=== PATIENT | male | born 1955 | race Two or more races ===

== ENCOUNTER 2024-08-24 10:00 | Day surgery (SDC) | payer MEDICARE, MEDICAID, SELFPAY ==
[2024-08-23 13:21] VITALS: BMI 27.8
[2024-08-24] VITALS (9 sets, daily range): BP systolic 110–139; BP diastolic 68–89; PULSE 53–65; RESP 8–17; TEMP 36.6–37.1; O2SAT 95–100; BMI 27.4
[2024-08-24] MEDS: DiphenhydrAMINE INJ 50 MG/ML VIAL 25 MG IV (11:23)
[2024-08-24] MEDS: MIDAZOLAM INJ 1 MG/ML VIAL 2 ML (ASD USE ONLY) 2 MG IV (11:23)
[2024-08-24] MEDS: fentaNYL CIT INJ 50 mCg/ML AMP 2ML (ASD USE ONLY) IV (11:23)
--- NOTE | 2024-08-24 11:41 | SUR.PHASEII ---
PATIENT INTO RECOVERY WITH NO ACUTE DISTRESS NOTED, V/S STABLE, NO COMPLAINTS OF PAIN OR NAUSEA AT THIS TIME, PATIENT REPOSITIONED FOR COMFORT, PATIENT ACTIVELY PASSING FLATUS, REPORT RECEIVED FROM HAKEEM SAMUEL.
== END 2024-08-24 12:15 | disposition home or self-care (01) ==
LOC: SASD 12:27
PROVIDERS: PCP Family Medicine; Referring Provider Surgery; Visit Provider Surgery
PROC: 0DBE8ZX Excision of Large Intestine, Via Natural or Artificial Opening Endoscopic, Diagnostic (ICD-10-PCS; CPT 45380; principal; 2024-08-24 11:30)
DX: Z12.11 Encounter for screening for malignant neoplasm of colon (principal); K57.30 Diverticulosis of large intestine without perforation or abscess without bleeding
CPT/HCPCS: G0121; J1200; J2250; J3010